=== PATIENT | male | born 1975 | race Caucasian/White ===

== ENCOUNTER → 2017-04-10 | Outpatient (CLI) | payer MEDICARE, OTHER ==
--- NOTE | 2017-04-10 09:19 | CT ---
EXAMINATION TYPE: CT iac w con DATE OF EXAM: 04/10/2017 COMPARISON: NONE HISTORY: Right ear hearing loss CT DLP: 142.7 mGycm Automated exposure control for dose reduction was used. CONTRAST: CT scan of the IACs is performed with IV Contrast, patient injected with 100 mL of Omnipaque 300. FINDINGS: The external auditory canals are patent bilaterally. Mastoid air cells show no evidence of abnormal opacification bilaterally. The middle ear ossicles are symmetric and unremarkable. There is no evidence of suspicious surrounding soft tissue density to suggest cholesteatoma. The scutum is preserved bilaterally. The cochlea and the semicircular canals are symmetric and unremarkable. Ves tibular aqueduct and internal carotid canal appear unremarkable. Temporomandibular joints are mainta ined bilaterally. Postoperative changes of the cervical spine partially imaged. Mild mucoperiosteal thickening of the ethmoid air cells. IMPRESSION: No significant abnormality seen to account for patient's symptoms.
== END | disposition home or self-care (01) ==
LOC: RADCTMAIN 07:26
PROVIDERS: ATTEND Family Medicine
DX: H91.90 Unspecified hearing loss, unspecified ear (principal)
CPT/HCPCS: 70481; Q9967

== ENCOUNTER → 2018-03-09 | Outpatient (CLI) | payer MEDICARE ==
--- NOTE | 2018-03-09 10:59 | US ---
LOWER EXTREMITY VENOUS INSUFFICIENCY SIDE PERFORMED: bilateral 1) Color flow is present and patency is documented in the following vessels. No DVT or SVT is noted . EIV Common Femoral Vein Deep Femoral Vein Femoral Vein Popliteal Vein Proximal Calf Veins Greater Saph Vein Upper Small Saph Vein 2) There is venous reflux noted at the following venous levels: right: EIV, GSV, CFV, - valve did n ot close with valsalva, FEM prox and small saph show reflux. Left: GSV, FEM prox, mid, distal, pop distal, small saph. - valve does not close with valsalva. Very limited exam, patient has history of DVT, has erwin filter, and is on coumadin. Exam was p erformed in patient's chair as patient is paralysed from chest down. Popliteal vessels and vessels di stal to the popliteal vein show small caliber vessel and difficult to see flow, consistent with chron ic DVT. Unable to see flow in left deep femoral vein. IMPRESSION: 1. Incompletely occluding deep venous thrombosis within the left popliteal vein, calf veins, and deep left femoral vein suggesting chronic thrombosis. 2. Right external iliac vein, greater saphenous vein, and common femoral vein valvular venous insuffi ciency and reflux within the right femoral vein and small saphenous vein. 3. Left greater saphenous vein, femoral vein, popliteal vein, and small saphenous vein valvular venou s insufficiency.
--- NOTE | 2018-03-13 11:46 | P.ARTDOP ---
Arterial Doppler LOWER EXTREMITY ARTERIAL DOPPLER: DATE OF SERVICE: 03/09/2018 Reason for study: Plantar ulcer right foot. Doppler waveforms: Multiphasic bilaterally throughout. Pulse volume recording: Normal configurations throughout. Pressure gradients: None. Ankle-brachial indices: Greater than 1 bilaterally. Toe pressures: 104 on the right, 112 on the left Impression: Suspect some calcific wall disease bilaterally. This is related to the super pressure at the ankle level. However, flow even to the toe levels appears to be normal. Clinical correlation recommended..
== END | disposition home or self-care (01) ==
LOC: RADUSWWP 03-05 08:26
PROVIDERS: ATTEND Family Medicine
DX: I82.432 Acute embolism and thrombosis of left popliteal vein (principal); I82.4Z3 Acute embolism and thrombosis of unspecified deep veins of distal lower extremity, bilateral; I82.412 Acute embolism and thrombosis of left femoral vein; I87.2 Venous insufficiency (chronic) (peripheral); E11.621 Type 2 diabetes mellitus with foot ulcer; M79.604 Pain in right leg; M79.605 Pain in left leg
CPT/HCPCS: 93922; 93923; 93970

== ENCOUNTER → 2018-05-23 | Outpatient (CLI) | payer MEDICARE ==
--- NOTE | 2018-05-23 15:20 | US ---
EXAMINATION TYPE: US kidneys/renal and bladder DATE OF EXAM: 05/23/2018 COMPARISON: NONE CLINICAL HISTORY: R13.9 Hematuria. Hematuria for 2 months EXAM MEASUREMENTS: Right Kidney: 11.5 x 4.9 x 4.7 cm Left Kidney: 13.0 x 4.9 x 5.4 cm Right Kidney: no evidence of hydronephrosis Left Kidney: upper limits of normal Bladder: limited evaluation, suprapubic catheter in place Bilateral Jets seen: no Incidental finding: splenomegaly, spleen = 18.6cm There is no evidence for hydronephrosis at this point in time. No nephrolithiasis is seen. No catherine s are identified. IMPRESSION: 1. splenomegaly noted.
== END | disposition home or self-care (01) ==
LOC: RADUSWWP 08:51
PROVIDERS: ATTEND Internal Medicine Infectious Disease
DX: R16.1 Splenomegaly, not elsewhere classified (principal); R31.9 Hematuria, unspecified
CPT/HCPCS: 76770

== ENCOUNTER → 2018-10-29 | Outpatient (CLI) | payer MEDICARE, OTHER ==
--- NOTE | 2018-10-29 10:23 | US ---
EXAMINATION TYPE: US kidneys/renal and bladder DATE OF EXAM: 10/29/2018 COMPARISON: NONE CLINICAL HISTORY: R31.9 hematuria. Hematuria EXAM MEASUREMENTS: Right Kidney: 12.6 x 4.4 x 4.8 cm Left Kidney: 12.9 x 5.0 x 5.3 cm Right Kidney: upper limits of normal, no evidence of hydronephrosis Left Kidney: upper limits of normal, no evidence of hydronephrosis Bladder: unable to visualize, patient has suprapubic Catheter Splenomegaly, spleen = 18.5cm There is no evidence for hydronephrosis at this point in time. No nephrolithiasis is seen. No catherine s are identified. The urinary bladder is anechoic. Bilateral ureteral jets are seen. IMPRESSION: 1. No hydronephrosis or nephrolithiasis. Urinary bladder is decompressed secondary to a suprapubic ca theter. 2. Incidentally noted splenomegaly measuring up to 18.5 cm.
== END ==
LOC: RADUSWWP 07:32
PROVIDERS: ATTEND Family Medicine
DX: R31.9 Hematuria, unspecified (principal)
CPT/HCPCS: 76770

== ENCOUNTER → 2019-10-22 | Outpatient (CLI) | payer OTHER ==
[2019-10-22 12:23] LABS: Anisocytosis Slight; Basophils # (A) 0.1 k/uL (0-0.2); Basophils % (A) 1 %; Eosinophils # (A) 0.6 k/uL (0-0.7); Eosinophils % (A) 7 %; HCT 32.7 % (39.0-53.0); HGB 9.2 gm/dL (13.0-17.5); Hypochromasia Marked; Lymphocytes # (A) 1.1 k/uL (1.0-4.8); Lymphocytes % (A) 11 %; MCHC 28.1 g/dL (31.0-37.0); MCV 71.3 fL (80.0-100.0); Mean Platelet Volume 7.2; Microcytosis Marked; Monocytes # (A) 0.4 k/uL (0-1.0); Monocytes % (A) 5 %; Neutrophils # (A) 6.9 k/uL (1.3-7.7); Neutrophils % (A) 75 %; Platelet Count 371 k/uL (150-450); Poikilocytosis Slight; RBC 4.58 m/uL (4.30-5.90); RDW 18.5 % (11.5-15.5); WBC 9.2 k/uL (3.8-10.6)
[2019-10-22 12:34] LABS: ALT 19 U/L (4-49); AST 16 U/L (17-59); African American GFR (CKD) >90 (>60 ml/min/1.73 sqM); Albumin 3.6 g/dL (3.5-5.0); Alkaline Phosphatase 78 U/L (38-126); Anion Gap 10 mmol/L; Blood Urea Nitrogen 27 mg/dL (9-20); Calcium 8.3 mg/dL (8.4-10.2); Carbon Dioxide 21 mmol/L (22-30); Chloride 108 mmol/L (98-107); Glucose 103 mg/dL (74-99); Non-African American GFR(CKD) >90 (>60 ml/min/1.73 sqM); Sodium 139 mmol/L (137-145); Total Bilirubin 0.5 mg/dL (0.2-1.3); Total Protein 7.3 g/dL (6.3-8.2)
--- NOTE | 2019-10-22 12:36 | CT ---
EXAMINATION TYPE: CT pelvis wo/w con DATE OF EXAM: 10/22/2019 COMPARISON: Old CT film images 06/10/2008 HISTORY: 44-year-old male Decubitus ulcer and osteomyelitis. TECHNIQUE: Contiguous axial scanning of the pelvis before and after administration of 100 ml Omnipaqu e 300 IV contrast coronal/sagittal reconstructions performed. CT DLP: 2444.6 mGycm Automated exposure control for dose reduction was used. FINDINGS: Large patient body habitus. There is a left lower quadrant sigmoid colostomy. Parastomal hernia measu res 9.4 cm wide. Partially visualized IVC filter. Complete fatty muscular atrophy of the visualized musculature. 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 There is a full-thickness ulcer along the right contacting the underlying ischial tuberosity which is sclerotic and slightly flattened. No well-defined lytic destruction.. At least moderate degenerative change of both hips. A suprapubic catheter is present within a collapsed bladder. Prostate gland measures 3.8 cm wide. The rectum is surgically absent An additional midline sacral decubitus ulcers present extending to within 1.3 cm of the distal sacral segment. There seems to be some chronic erosion/loss of the coccyx. IMPRESSION: 1. FULL-THICKNESS DECUBITUS ULCER ON THE RIGHT CONTACTING THE UNDERLYING ISCHIAL TUBEROSITY WHICH IS SCLEROTIC AND SLIGHTLY FLATTENED. CHANGES APPEAR SOMEWHAT CHRONIC, POSSIBLY FROM PRIOR OSTEOMYELITIS. NO WELL-DEFINED LYTIC DESTRUCTION AT THIS TIME. HOWEVER, GIVEN THE FULL-THICKNESS EXTENSION, FINDING S SUGGEST IMPENDING OSTEOMYELITIS. 2. ADDITIONAL MIDLINE SACRAL DECUBITUS ULCER EXTENDING TO WITHIN 1.3 CM OF THE DISTAL SACRAL SEGMENT. THERE APPEARS TO BE CHRONIC BONE LOSS OF THE COCCYX PROBABLY FROM PRIOR EPISODES OF OLD INFECTION. 3. SUSPECT GRANULATION TISSUE AND HEALED ULCERS ALONG THE LATERAL ASPECT OF THE THIGHS.
[2019-10-22 13:12] LABS: C Reactive Protein 31.4 mg/L (<10.0)
[2019-10-22 13:16] LABS: Erythrocyte Sedimentation Rate 41 mm/hr (0-15)
== END | disposition home or self-care (01) ==
LOC: RADCTMAIN 09:21
PROVIDERS: ATTEND Surgery
DX: L89.159 Pressure ulcer of sacral region, unspecified stage (principal); L89.219 Pressure ulcer of right hip, unspecified stage; G82.20 Paraplegia, unspecified; L89.154 Pressure ulcer of sacral region, stage 4; L89.894 Pressure ulcer of other site, stage 4; L89.323 Pressure ulcer of left buttock, stage 3; L89.893 Pressure ulcer of other site, stage 3; Z87.39 Personal history of other diseases of the musculoskeletal system and connective tissue
CPT/HCPCS: 84134; 80053; 85652; 85025; 86140; 72194; 36415; Q9967